=== PATIENT | female | born 1980 | race Caucasian/White ===

== ENCOUNTER 2016-09-15 15:09 | Emergency (ER) | payer BC ==
[2016-09-15] MEDS ORDERED: KETOROLAC TROMETHAMINE 30 MG/1 ML VIAL IVPUSH ONE (15:55)
[2016-09-15] MEDS ORDERED: SODIUM CHLORIDE 0.9% 500 ML INFUS.BAG IV ONE (15:56)
[2016-09-15 15:57] VITALS: BP 117/76; PULSE 79; TEMP 98; BMI 21.9
--- NOTE | 2016-09-15 16:01 | PDOC ---
History of Present Illness <Rose Faustin - Last Filed: 09/15/16 18:13> - History of Present Illness Initial Comments: 09/15/16 15:56 36-year-old female with a negative past medical history, she is on no medications, NKDA, LMP 08/28/16 Patient is complaining of migraine headaches for "many years", which she states have been worse in the past 7 years She states it is worse before her menses She states that 2 months ago she got Botox injections in her forehead, and since then, her migraine headaches are worsened since the Botox injections She states that since her Botox injections in her forehead she's been feeling a little dizzy, and having some increased frequency in her migraine headaches She is also been having increased frequency of her anxiety episodes She describes her headache as diffuse from the frontal area to the top all the way to the back, and not on one side or the other She denies any aura, or visual symptoms with her headaches She denies any double vision or blurred vision She states she is having the same headache today, and it's a tiny bit worse today She is also complaining of some intermittent lightheadedness which is been going on for "a while", and some dizziness when she rapidly turns her head from side to side She states that she had blood work done a month ago by her primary care doctor, which was reviewed by me, and is completely normal, except for a slightly low vitamin D She is on vitamin D supplementation at this time She denies any fevers or chills, she denies any stiff neck, she denies any recent intercurrent illnesses She denies any cough or sputum, she denies any abdominal pain, she denies any chest pain She denies any focal neurologic complaints She denies any other complaints at this time, and the remainder of the review of systems is negative <Elli Dominique - Last Filed: 09/15/16 18:19> - General Chief Complaint: Migraine Headache Stated Complaint: migraine Time Seen by Provider: 09/15/16 15:29 Past History <Rose Faustin - Last Filed: 09/15/16 18:13> - Immunization History Td Vaccination: No - Psycho/Social/Smoking Cessation Hx Anxiety: No Suicidal Ideation: No Smoking Status: Yes Smoking History: Current every day smoker Have you smoked in the past 12 months: Yes Number of Cigarettes Smoked Daily: 5 'Breaking Loose' booklet given: 05/30/16 Hx Alcohol Use: Yes (occasional) <Elli Dominique - Last Filed: 09/15/16 18:19> - Past Medical History Allergies/Adverse Reactions: Allergies Allergy/AdvReac Type Severity Reaction Status Date / Time No Known Allergies Allergy Verified 05/30/16 12:29 Home Medications: Ambulatory Orders Advil - 2 tab PO ONCE PRN 09/15/16 Magnesium 09/15/16 [place]-3 09/15/16 Probiotic 09/15/16 Vitamin B Complex 09/15/16 Vitamin D - 09/15/16 Review of Systems - Review of Systems Able to Perform ROS?: Yes Comments:: 09/15/16 15:59 12 point review of systems is as per history of present illness and otherwise negative <Elli Dominique - Last Filed: 09/15/16 18:19> *Physical Exam - Vital Signs Last Vital Signs Temp Pulse Resp BP Pulse Ox 98 F 79 20 117/76 98 09/15/16 15:10 09/15/16 15:10 09/15/16 15:10 09/15/16 15:10 09/15/16 15:10 <Rose Faustin - Last Filed: 09/15/16 18:13> - Physical Exam Comments: 09/15/16 15:59 Physical exam Last Vital Signs Temp Pulse Resp BP Pulse Ox 98 F 79 20 117/76 98 09/15/16 15:10 09/15/16 15:10 09/15/16 15:10 09/15/16 15:10 09/15/16 15:10 GENERAL: The patient is awake, alert, and fully oriented, and in no apparent distress. HEAD: Normal with no signs of trauma. EYES: Pupils equal, round and reactive to light, extraocular movements intact, sclera anicteric, conjunctiva are normal. ENT: TMs normal, nares patent, oropharynx clear without exudates. Moist mucous membranes. NECK: Normal range of motion, supple without lymphadenopathy, JVD, or masses. No meningismus LUNGS: Breath sounds equal, clear to auscultation bilaterally. No wheezes, and no crackles. HEART: Regular rate and rhythm, normal S1 and S2 without murmur, rub or gallop. ABDOMEN: Soft, nontender, normoactive bowel sounds. No guarding, no rebound. No masses appreciated. EXTREMITIES: Normal range of motion, no edema. No clubbing or cyanosis. No cords, erythema, or tenderness. NEURO: Mental status: The patient is oriented x3. Cranial nerves: Cranial nerves II through XII are intact Motor: The upper extremities are 5 over 5 in all muscle groups. The lower extremities are 5 over 5 in all muscle groups. Sensation: Sensation is intact to light touch throughout. Cerebellar: Ksjphw-reycnw-ubcc is normal in both upper extremities. Heel-knee- irby is normal in both lower extremities. Gait: Normal. Heel and toe walking are normal. Tandem gait is normal. PSYCH: Normal mood, normal affect. SKIN: Warm, Dry, <Elli Dominique - Last Filed: 09/15/16 18:19> ED Treatment Course - RADIOLOGY Radiograph Interpretation: 09/15/16 18:13 Referring Physician: Elli Mejias Patient Name: Maryan Aguilar THIS IS A PRELIMINARYREPORT FROM [facility] DATE OF SERVICE: 2016-09-15 17:10:24.0 IMAGES: 69 EXAM: CT of the brain without contrast HISTORY:Headache and dizziness COMPARISON: None FINDINGS:Serial transaxial images of the brain are available without intravenous contrast agent. The brain parenchyma is normal. There is no midline shift or mass-effect or acute hemorrhage. No abnormal fluid collections are seen in the ventricular system is normal. The calvarium appears intact IMPRESSION: Negative study THIS DOCUMENT HAS BEEN ELECTRONICALLY SIGNED Cleveland Ch MD 09/15/2016 18:01 EST - Medications Given in the ED: ED Medications Discontinued Medications Generic Name Dose Route Start Last Admin Trade Name Freq PRN Reason Stop Dose Admin Ketorolac Tromethamine 30 mg 09/15/16 15:55 09/15/16 16:17 Toradol Injection - IVPUSH 09/15/16 15:56 30 mg ONCE ONE Administration Sodium Chloride 1,000 ml 09/15/16 15:56 09/15/16 16:17 Normal Saline - IV 09/15/16 15:57 1,000 ml ONCE ONE Administration <Rose Faustin - Last Filed: 09/15/16 18:13> Medical Decision Making - Medical Decision Making 09/15/16 16:01 36-year-old female with a many year history of anxiety and migraines, which has worsened a bit since she had her Botox injections 2 months ago Patient has never seen a neurologist for this issue 09/15/16 18:17 EKG Normal sinus rhythm with occasional PAC, otherwise normal EKG CT scan of the head-NAD pt feeling much better with IV fluid, and ambulatory around the emergency department <Elli Dominique - Last Filed: 09/15/16 18:19> *DC/Admit/Observation/Transfer <Rose Faustin - Last Filed: 09/15/16 18:13> <Elli Dominique - Last Filed: 09/15/16 18:19> Diagnosis at time of Disposition: Headache, Lightheadedness - Discharge Dispostion Disposition: HOME Condition at time of disposition: Improved - Referrals Referrals: Joe Loving MD [Staff Physician] - Call tomorrow - Patient Instructions Additional Instructions: Follow-up with neurology this week-call tomorrow for an appointment Increase fluid intake and rest Followup with your primary care physician in 24-48 hours Return immediately if you worsen in any way - Post Discharge Activity Work/School Note: Back to Work
[2016-09-15] MEDS ORDERED: KETOROLAC TROMETHAMINE 30 MG/1 ML VIAL ONE (16:08)
--- NOTE | 2016-09-16 10:26 | EKG ---
Test Reason : Blood Pressure : / mmHG Vent. Rate : 074 BPM Atrial Rate : 074 BPM P-R Int : 154 ms QRS Dur : 080 ms QT Int : 374 ms P-R-T Axes : 078 073 062 degrees QTc Int : 415 ms POOR DATA QUALITY, INTERPRETATION MAY BE ADVERSELY AFFECTED SINUS RHYTHM WITH PREMATURE ATRIAL COMPLEXES OTHERWISE NORMAL ECG NO PREVIOUS ECGS AVAILABLE Confirmed by BING CORTEZ MD ([id number]) on 09/16/2016 10:26:36 AM Referred By: ADAIR Confirmed By:BING CORTEZ MD
== END 2016-09-15 18:36 | disposition home or self-care (01) ==
LOC: FER 15:09
PROC: 3E0333Z Introduction of Anti-inflammatory into Peripheral Vein, Percutaneous Approach (ICD-10-PCS; principal; 2016-09-15)
PROC: 3E0337Z Introduction of Electrolytic and Water Balance Substance into Peripheral Vein, Percutaneous Approach (ICD-10-PCS; 2016-09-15)
DX: R51 Headache (principal); R42 Dizziness and giddiness; F17.210 Nicotine dependence, cigarettes, uncomplicated
CPT/HCPCS: 70450-TC; 93005; 93010; 99282-25